=== PATIENT | male | born 2000 | race Caucasian/White ===

== ENCOUNTER 2022-09-29 17:07 | Emergency (ER) | payer MEDICAID ==
[~2022-09-29] VITALS: Ht 167.6 cm; Wt 86.6 kg
[2022-09-29 17:36] VITALS: BP 128/71
--- NOTE | 2022-09-29 20:54 | NUR ---
TO BED 12 FROM LOBBY
--- NOTE | 2022-09-29 21:02 | NUR ---
c/o 10/10 burning chest pain x 1 week, per pt pain is intermittent. denies any pmhx, denies allergies.
[2022-09-29] MEDS ORDERED: LORazepam 0.5 MG TAB PO ONE (21:30)
[2022-09-29] MEDS ORDERED: KETOROLAC 30 MG/ML VIAL IM ONE (21:30)
--- NOTE | 2022-09-29 21:30 | NUR ---
Xray by bedside
--- NOTE | 2022-09-29 22:00 | NUR ---
Lab by bedside
[2022-09-29 22:11] LABS: BASOPHILS % (AUTO) 0.4 % (0.0-2.0); EOSINOPHILS % (AUTO) 0.6 % (0.0-4.0); HEMATOCRIT 42.5 % (36-52); HEMOGLOBIN 14.4 g/dL (12.0-18.0); LYMPHOCYTES # (AUTO) 2.1 K/uL (2.0-11.5); LYMPHOCYTES % (AUTO) 30.8 % (20.5-51.1); MEAN CORPUSCULAR HEMOGLOBIN 31 pg (27-31); MEAN CORPUSCULAR HGB CONC 34 g/dL (33-37); MEAN CORPUSCULAR VOLUME 90.7 fL (80-94); MONOCYTES # (AUTO) 0.4 K/uL (0.8-1.0); MONOCYTES % (AUTO) 6.5 % (1.7-9.3); NEUTROPHILS # (AUTO) 4.1 K/uL (1.8-7.7); NEUTROPHILS % (AUTO) 61.7 % (42.2-75.2); PLATELET COUNT (AUTO) 286 K/uL (140-450); RED BLOOD CELL COUNT(AUTO) 4.69 MIL/uL (4.20-6.10); RED CELL DISTRIBUTION WIDTH 13.3 % (11.6-13.7); WHITE BLOOD COUNT (AUTO) 6.7 K/uL (4.8-10.8)
--- NOTE | 2022-09-29 22:41 | NUR ---
Per patient, pain medication effective. 5/10 pain at this time
--- NOTE | 2022-09-29 22:55 | NUR ---
Andrzej villegas in [facility] - 09/29/22 at [email or web address] Butts by bedside
[2022-09-29 23:49] LABS: ANION GAP 10.8 (8-16); CARBON DIOXIDE 30.9 mmol/L (21-32); CREATININE 0.9 mg/dL (0.6-1.3); POTASSIUM 3.7 mmol/L (3.5-5.1)
--- NOTE | 2022-09-30 00:15 | NUR ---
Dr. Butts by bedside
[2022-09-30] MEDS ORDERED: CYCL-711 PO (00:18)
[2022-09-30] MEDS ORDERED: NAPR-54 PO (00:18)
[2022-09-30 00:39] VITALS: BP 112/62
--- NOTE | 2022-09-30 00:39 | NUR ---
Patient discharged with v/s stable. Written and verbal after care instructions given and explained. New rx for flexeril and naprosyn Patient verbalized understanding. Ambulatory with steady gait. All questions addressed prior to discharge. Advised to follow up with PMD.
== END 2022-09-30 00:32 | disposition home or self-care (01) ==
LOC: MED 17:07
DX: R07.89 Other chest pain (principal); Z79.899 Other long term (current) drug therapy
CPT/HCPCS: 36415; 71045; 80048; 84484; 85025; 93005; 96372; 99285; J1885; Q0092

== ENCOUNTER 2023-01-11 18:59 | Emergency (ER) | payer MEDICAID ==
[~2023-01-11] VITALS: Ht 175.3 cm; Wt 83.9 kg
[~2023-01-11 18:59] MED LIST: CYCL-711 PO; NAPR-54 PO
[2023-01-11 19:18] VITALS: BP 110/66
--- NOTE | 2023-01-11 19:44 | NUR ---
22Y/O M BIB SELF C/O PAIN TO RIGHT GREAT TOE AFTER PT STATES HE HIT TOE ON TOILET SEAT TODAY. PAIN 6/10 WHEN AMBULATING ONLY. NO CP OR SOB NOTED. +ROM. NKDA
[2023-01-11] MEDS ORDERED: BACITRACIN OINT 500 UNITS/GM PKT TP ONE (19:50)
--- NOTE | 2023-01-11 19:57 | NUR ---
YVONNE PATEL AT BEDSIDE
[2023-01-11] MEDS ORDERED: IBUP-2213 PO (20:11)
[2023-01-11] MEDS ORDERED: BACI-418 TP (20:11)
--- NOTE | 2023-01-11 20:34 | NUR ---
Patient discharged with v/s stable. Written and verbal after care instructions given and explained. Patient verbalized understanding. Ambulatory with steady gait. All questions addressed prior to discharge. Advised to follow up with PMD.
== END 2023-01-11 20:41 | disposition home or self-care (01) ==
LOC: MED 18:59
DX: S91.201A Unspecified open wound of right great toe with damage to nail, initial encounter (principal); X58.XXXA Exposure to other specified factors, initial encounter; Y93.89 Activity, other specified; Y92.89 Other specified places as the place of occurrence of the external cause; Y99.8 Other external cause status
CPT/HCPCS: 11730; 99284